=== PATIENT | male | born 1950 | race Caucasian/White ===

== ENCOUNTER 2023-07-21 07:24 | Observation (INO) ==
[2023-07-16 10:43] LABS: Basophils # (Auto) 0.13 K/mcL (0.00-0.30); Basophils % (Auto) 1.7 % (0.0-2.0); Eosinophils # (Auto) 0.68 K/mcL (0.00-0.70); Eosinophils % (Auto) 8.7 % (0.0-7.0); Hematocrit 46.6 % (40.1-51.0); Lymphocytes # (Auto) 2.41 K/mcL (1.50-4.80); Lymphocytes % (Auto) 30.9 % (15.5-49.0); Mean Cell Volume 93.8 fL (80.0-100.0); Mean Corpuscular HGB Conc 32.2 g/dL (31.0-36.0); Mean Platelet Volume 9.5 fL (8.8-12.5); Monocytes # (Auto) 0.66 K/mcL (0.10-0.90); Monocytes % (Auto) 8.5 % (1.0-12.0); Neutrophils % (Auto) 50.1 % (38.0-78.0); Platelet Count 428 K/mcL (140-440); RBC 4.97 M/mcL (4.63-6.08); WBC 7.8 K/mcL (4.5-11.0)
[2023-07-16 10:47] LABS: Appearance,Urine Slightly Cloudy (Clear); Bilirubin,Urine Negative (Negative); Color,Urine Yellow; Culture Indicated,Urine Yes; Glucose,Urine (UA) >=1000 mg/dL (Negative); Ketones,Urine Negative (Negative); Leukocyte Esterase,Urine Trace /uL (Negative); Nitrate,Urine Negative (Negative); Protein,Urine 30 mg/dL (Negative); Specific Gravity,Urine 1.025 (1.000-1.035); Urine Blood Large ery/mcL (Negative); Urine RBC 14 /hpf (0-3); Urine Squamous Epithelial Cell 0 /hpf (0-4); Urine WBC 10 /hpf (0-4); Urobilinogen,Urine Normal
[2023-07-16 11:10] LABS: ALT/SGPT 24 U/L (<40); AST/SGOT 21 U/L (<40); Albumin 4.5 gm/dL (3.2-5.2); Albumin/Globulin Ratio 1.6 (1.0-2.3); Alkaline Phosphatase 103 U/L (39-117); Bilirubin,Total 0.3 mg/dL (0.1-1.0); Blood Urea Nitrogen 18 mg/dL (8-23); Calcium 9.5 mg/dL (8.6-10.4); Carbon Dioxide 22 mmol/L (22-30); Chloride 106 mmol/L (96-108); Globulin 2.9 gm/dL (2.2-3.7); Glomerular Filtration Rate 88; Glucose 124 mg/dL (70-105)
[2023-07-16 14:25] LABS: Hemoglobin A1C 7.5 % Hgb (4.0-6.0)
[2023-07-21] MEDS ORDERED: ONDANSETRON 4 MG/2 ML VIAL ONE (07:58)
[2023-07-21] MEDS ORDERED: DEXAMETHASONE 10 MG/ML VIAL ONE (07:58)
[2023-07-21] MEDS ORDERED: LIDOCAINE 2% PF 5 ML VIAL ONE (07:58)
[2023-07-21] MEDS ORDERED: PROPOFOL 200 MG/20 ML VIAL IV ONE (07:58)
[2023-07-21] MEDS ORDERED: TRANEXAMIC ACID 1,000 MG/10 ML VIAL ONE (07:58)
[2023-07-21] MEDS ORDERED: MAGNESIUM SULFATE 2 GM/50 ML BAG IV ONE (08:03)
[2023-07-21] MEDS ORDERED: KETAMINE 50 MG/ML Syringe IV ONE (08:03)
[2023-07-21] MEDS: oxyCODONE 10 MG TAB.ER.12H PO SCH (08:13)
[2023-07-21] MEDS: CELECOXIB 200 MG CAPSULE PO SCH (08:14)
[2023-07-21] MEDS: PREGABALIN 75 MG CAPSULE PO SCH (08:15)
[2023-07-21] MEDS: ceFAZolin 2 GM in DEXTROSE 5% IN WATER 50 ML IV SCH (09:21)
[2023-07-21] MEDS ORDERED: ROCURONIUM 10 MG/ML ML IV ONE (09:45)
[2023-07-21] MEDS ORDERED: fentaNYL 100 MCG/2 ML VIAL ONE (09:46)
[2023-07-21] MEDS ORDERED: PHENYLephrine 1 MG/10 ML SYRINGE (ANEST) ONE (10:04)
[2023-07-21] MEDS ORDERED: SUGAMMADEX SODIUM 200 MG/2 ML VIAL IV ONE (10:10)
[2023-07-21] MEDS ORDERED: HYDROmorphone 1 MG/ML SYRINGE ONE (10:39)
[2023-07-21] MEDS ORDERED: IPRATROPIUM/ALBUTEROL 3 ML AMPUL.NEB NEB PRN (11:44)
[2023-07-21] MEDS ORDERED: BENZOCAINE/MENTHOL 1 LOZENGE PO PRN ×2 (11:44→11:48)
[2023-07-21] MEDS ORDERED: DEXTROSE 50% 50 ML VIAL IV PRN (11:48)
[2023-07-21] MEDS ORDERED: FLEETS ADULT 1 DOSE ENEMA PR PRN (11:48)
[2023-07-21] MEDS ORDERED: ONDANSETRON 4 MG/2 ML VIAL IV PRN (11:48)
[2023-07-21] MEDS ORDERED: MAGNESIUM HYDROXIDE 30 ML ORAL.SUSP PO PRN (11:48)
[2023-07-21] MEDS ORDERED: DEXTROSE 31 GM ORAL.SUSP PO PRN (11:48)
[2023-07-21] MEDS ORDERED: POLYETHYLENE GLYCOL 3350 17 GM PACKET PO PRN (11:48)
[2023-07-21] MEDS ORDERED: BISACODYL 10 MG SUPP.RECT PR PRN (11:48)
[2023-07-21] MEDS ORDERED: ALBUTEROL SULFATE 60 PUFF INHALER INH PRN (12:00)
[2023-07-21] MEDS ORDERED: FLUTICASONE PROPIONATE SPRAY.NAS NAS PRN (12:02)
[2023-07-21] MEDS: KETOROLAC 15 MG/ML VIAL IV PRN (12:24)
[2023-07-21] MEDS: METHOCARBAMOL 1,000 MG/10 ML VIAL IV PRN (12:25)
[2023-07-21] MEDS: fentaNYL 100 MCG/2 ML VIAL IV PRN (12:53)
[2023-07-21] MEDS: 0.9 % SODIUM CHLORIDE 250 ML IV SCH (13:31)
[2023-07-21] MEDS: HYDROcodone/APAP 10/325MG TABLET PO PRN (13:34)
[2023-07-21] MEDS: 0.9 % SODIUM CHLORIDE 1,000 ML IV SCH (13:34)
[2023-07-21] MEDS: 0.9 % SODIUM CHLORIDE 10 ML SYRINGE IV SCH (13:35)
[2023-07-21] MEDS: TRANEXAMIC ACID 1,000 MG/10 ML VIAL IV ONE (15:09)
[2023-07-21] MEDS: ceFAZolin 1 GM VIAL IV SCH (17:38)
[2023-07-21] MEDS: metFORMIN 500 MG TAB.XL.24H PO SCH (17:39)
[2023-07-21] MEDS: INSULIN LISPRO 1 UNIT/0.01 ML UNIT SQ SCH (17:41)
[2023-07-21] MEDS: ATORVASTATIN 40 MG TABLET PO SCH (20:56)
[2023-07-21] MEDS: DOCUSATE SODIUM 100 MG CAPSULE PO SCH (20:56)
[2023-07-21] MEDS: ASPIRIN 81 MG TAB.CHEW PO SCH (20:56)
[2023-07-21] MEDS: SENNOSIDES 1 TABLET PO SCH (20:56)
[2023-07-21] MEDS: CYCLOBENZAPRINE 10 MG TABLET PO PRN (20:56)
[2023-07-22] MEDS: amLODIPine 10 MG TABLET PO SCH (08:42)
[2023-07-22] MEDS: LORATADINE 10 MG TABLET PO SCH (08:42)
[2023-07-22] MEDS: LOSARTAN 50 MG TABLET PO SCH (08:42)
[2023-07-22] MEDS: MAGNESIUM OXIDE 400 MG TABLET PO SCH (08:42)
[2023-07-22] MEDS: INSULIN GLARGINE, HUMAN 1 UNIT/0.01 ML SQ SCH (08:43)
[2023-07-22] MEDS: TAMSULOSIN 0.4 MG CAPSULE PO SCH (08:43)
[2023-07-22] MEDS: VITAMIN D3 25 MCG TABLET PO SCH (08:43)
[2023-07-22] MEDS: OMEPRAZOLE 20 MG CAPSULE PO SCH (08:43)
[2023-07-22] MEDS: EMPAGLIFLOZIN 25 MG PO SCH (08:47)
== END 2023-07-23 13:16 ==
LOC: MEDSUR 07:24 → SUR 07:24 → MEDSUR 13:14
PROVIDERS: ADMIT Orthopaedic Surgery; ATTEND Orthopaedic Surgery